=== PATIENT | male | born 1945 | race Caucasian/White ===

== ENCOUNTER → 2017-06-09 | Outpatient (CLI) | payer MEDICARE, BC ==
[2017-06-09 13:34] LABS: HEMOGLOBIN 14.7 g/dL (14.1-18.0); LYMPH # 1.2 K/mm3 (0.7-4.5)
[2017-06-09 13:40] LABS: BUN 27 mg/dL (7-18); GFR (ESTIMATED) 55 ML/MIN (>60)
== END ==
LOC: CARL-LAB 07:13
PROVIDERS: Internal Medicine Adolescent Medicine
DX: I10 Essential (primary) hypertension (principal); E78.5 Hyperlipidemia, unspecified; E11.9 Type 2 diabetes mellitus without complications

== ENCOUNTER → 2017-07-16 | Outpatient (CLI) | payer MEDICARE, BC ==
--- NOTE | 2017-07-16 14:46 | RADIOLOGY REPORT PS360 ---
US THYROID HISTORY: SUBMENTAL MASS,THYROMEGALY ORDERING PHYSICIAN: SERAFIN GILLETTE APRN PATIENT AGE: 71 years COMPARISON: None FINDINGS: Right lobe: 4.7 x 2.1 x 2 cm. 4 mm cyst/hypoechoic nodule upper pole. 4 mm hypoechoic lesion/cyst lower pole Left lobe: 3.6 x 1.4 x 1.3 cm 4 mm solid-appearing slightly hypoechoic nodule mid aspect Isthmus: Mildly thickened at 5 mm IMPRESSION: 1. Small bilateral hypoechoic nodules with low low suspicion for malignancy. 2. Otherwise negative thyroid ultrasound
--- NOTE | 2017-07-16 14:47 | RADIOLOGY REPORT PS360 ---
US SOFT TISSUE HEAD/NECK HISTORY: SUBMENTAL MASS,THYROMEGALY ORDERING PHYSICIAN: SERAFIN GILLETTE APRN PATIENT AGE: 71 years COMPARISON: None FINDINGS: General survey is performed of the submandibular region and submental area showing no obvious mass or erendira enlargement or abnormal fluid collection. IMPRESSION: Negative soft tissue ultrasound of the neck as described above.
== END ==
LOC: RAD 13:38
DX: R22.1 Localized swelling, mass and lump, neck (principal); E01.0 Iodine-deficiency related diffuse (endemic) goiter